=== PATIENT | male | born 1955 | race Caucasian/White ===

== ENCOUNTER → 2016-12-07 | Outpatient (CLI) | payer BC ==
--- NOTE | ~2016-12-07 | CR281 ---
[facility] A Service of [facility] & [facility] RADIOLOGY TEXT RESULTS PATIENT: DERRICK KULKARNI V LOCATION: [facility] : 53 UNIT #: [id number] AGE: [address]: KRISTINA GLYNN APRN SEX: M ORDER DR: [id number] [facility] [address] [place], [place] [address] [id number] O MR#: [id number] Acc #: [id number] NAME: DERRICK KULKARNI V. : 1955 SEX: M STUDY DATE/TIME: 12/07/2016 14:27 UNIT: [facility] ROOM: STUDY DESCRIPTION: CR Wrist Min 3 View Lt Attending Physician: Kristina Glynn Np Ordering Physician: Kristina Glynn Np Primary Care Physician: Rose Marie Ferguson M.D. MEDICAL IMAGING REPORT This report is preliminary unless electronic signature is present EXAM Left wrist 12/07/2016 INDICATIONS 61-year-old male with left wrist injury. Swelling of the left wrist. Recent injury after digging a Post. Symptoms began Monday. Pain and swelling. TECHNIQUE 3 views left wrist. Correlation is made with hand series 05/25/2012 FINDINGS There is no acute fracture. Alignment is preserved. Incidental cyst within the scaphoid. IMPRESSION 1. Negative. Dictated by... Jono Escalante M.D. THIS IS AN ELECTRONICALLY VERIFIED REPORT Jono Escalante M.D. at 12/07/2016 4:57 PM RONALD/james TD: 12/07/2016 15:22 JOB #: [id number] MEDICAL IMAGING REPORT Page 1 of 1 COPY
== END | disposition home or self-care (01) ==
LOC: CRAD 13:58
DX: S69.92XA Unspecified injury of left wrist, hand and finger(s), initial encounter (principal)
CPT/HCPCS: 73110

== ENCOUNTER → 2017-01-17 | Outpatient (CLI) | payer BC ==
--- NOTE | ~2017-01-17 | CR139 ---
[facility] A Service of [facility] & [facility] RADIOLOGY TEXT RESULTS PATIENT: DERRICK KULKARNI V LOCATION: [facility] : 53 UNIT #: [id number] AGE: [address]: Rose Marie Ferguson MD SEX: M ORDER DR: [id number] [facility] [address] [place], [place] [address] [id number] O MR#: [id number] Acc #: [id number] NAME: DERRICK KULKARNI V. : 1955 SEX: M STUDY DATE/TIME: 01/17/2017 12:14 UNIT: [facility] ROOM: STUDY DESCRIPTION: CR Hand 2 Views Rt Attending Physician: Rose Marie Ferguson M.D. Referring Physician: Rose Marie Ferguson M.D. Ordering Physician: Rose Marie Ferguson M.D. Primary Care Physician: Rose Marie Ferguson M.D. MEDICAL IMAGING REPORT This report is preliminary unless electronic signature is present EXAM Right hand 2 views INDICATION Swollen right middle finger for 1 week. Prior history of gout. TECHNIQUE Two views were obtained. No comparisons. FINDINGS There is no fracture. The alignment is normal. There is some mild degenerative change of the third MCP joint and some degenerative change of the IP joint of the thumb. No definite erosions. No significant soft tissue swelling. IMPRESSION Degenerative changes as described. Dictated by... Peter Newsome M.D. THIS IS AN ELECTRONICALLY VERIFIED REPORT Peter Newsome M.D. at 01/19/2017 7:24 PM ANNE/antonio TD: 01/18/2017 11:24 JOB #: [id number] MEDICAL IMAGING REPORT Page 1 of 1 COPY
== END | disposition home or self-care (01) ==
LOC: CRAD 11:47
DX: M25.441 Effusion, right hand (principal)
CPT/HCPCS: 73120